=== PATIENT | male | born 1950 | race Caucasian/White ===

== ENCOUNTER 2017-12-09 05:49 | Emergency (ER) | payer MEDICARE, OTHER ==
[~2017-12-09] VITALS: Ht 182.9 cm; Wt 89.0 kg
[2017-12-09 06:28] LABS: BASOPHILS % (AUTO) 0.2 % (0-1); EOSINOPHILS # (AUTO) 0.1 X10'3 (0-0.9); EOSINOPHILS % (AUTO) 1.8 % (0-6); HEMATOCRIT 54.8 % (42.0-52.0); LYMPHOCYTES # (AUTO) 1.3 X10'3 (1.1-4.8); LYMPHOCYTES % (AUTO) 17.8 % (21-51); MEAN CORPUSCULAR HEMOGLOBIN 31.1 PG (27.0-31.0); MEAN CORPUSCULAR HGB CONC 34.1 % (33.0-36.5); MEAN CORPUSCULAR VOLUME 91.2 FL (78-98); MEAN PLATELET VOLUME 8.1 FL (7.4-10.4); MONOCYTES # (AUTO) 0.6 X10'3 (0-0.9); MONOCYTES % (AUTO) 8.4 % (2-12); NEUTROPHILS # (AUTO) 5.4 X10'3 (1.8-7.7); NEUTROPHILS % (AUTO) 71.8 % (42-75); PLATELET COUNT 157 X10'3 (140-440); RED BLOOD COUNT 6.01 X10'6 (4.70-6.10); RED CELL DISTRIBUTION WIDTH 13.9 % (11.5-14.5); WHITE BLOOD COUNT 7.6 X10'3 (4.5-11.0)
[2017-12-09 06:33] LABS: HEMOGLOBIN 18.7 g/dl (14.0-17.9)
[2017-12-09 06:39] LABS: INR 1.1 INR; PARTIAL THROMBOPLASTIN TIME 27 SECONDS (22-32); PROTHROMBIN TIME 11.8 SECONDS (9.0-12.0)
[2017-12-09] MEDS ORDERED: aspirin 81mg tab.chew PO ONE (06:40)
[2017-12-09] MEDS ORDERED: normal saline 1000ML IV soln IVB ONE (06:40)
[2017-12-09] MEDS ORDERED: nitroGLYCERIN 0.4mg/hour patch TD ONE (06:40)
[2017-12-09 06:44] LABS: ALANINE AMINOTRANSFERASE 56 U/L (12-78); ALBUMIN 3.4 G/DL (3.4-5.0); ALBUMIN/GLOBULIN RATIO 0.9 (1.1-1.5); ALKALINE PHOSPHATASE 65 IU/L (46-116); ANION GAP 8 (8-16); ASPARTATE AMINO TRANSFERASE 35 U/L (10-37); BLOOD UREA NITROGEN 19 MG/DL (7-18); BUN/CREATININE RATIO 18.3 (5.4-32.0); CALCIUM 8.8 MG/DL (8.5-10.1); CHLORIDE 105 MMOL/L (99-107); CREATININE 1.04 MG/DL (0.60-1.10); GLUCOSE 113 MG/DL (70-104); POTASSIUM 3.7 MMOL/L (3.5-5.1); SODIUM 139 MMOL/L (135-145); TOTAL CARBON DIOXIDE 26.3 MMOL/L (24-32); TOTAL PROTEIN 7.3 G/DL (6.4-8.2); eGFR 71 ML/MIN
[2017-12-09 07:47] VITALS: BP 168/97
== END 2017-12-09 07:51 | disposition home or self-care (01) ==
LOC: EEVIPCON 05:49 → ER 05:49
DX: I24.9 Acute ischemic heart disease, unspecified (principal); I25.10 Atherosclerotic heart disease of native coronary artery without angina pectoris; E78.00 Pure hypercholesterolemia, unspecified; I10 Essential (primary) hypertension; I25.2 Old myocardial infarction; Z95.1 Presence of aortocoronary bypass graft; Z88.5 Allergy status to narcotic agent; Z88.8 Allergy status to other drugs, medicaments and biological substances
CPT/HCPCS: 36415; 71045; 80053; 84484; 85025; 85610; 85730; 93005; 99285; J7030

== ENCOUNTER 2018-04-12 14:36 | Day surgery (SDC) | payer MEDICARE ==
[2018-04-12] VITALS (10 sets, daily range): BP systolic 93–165; BP diastolic 51–89
[~2018-04-12] VITALS: Ht 182.9 cm; Wt 94.8 kg
[2018-04-12] MEDS ORDERED: diphenhydrAMINE 25mg capsule PO PRN (15:05)
[2018-04-12] MEDS ORDERED: normal saline 1000ml 1,000 ML IV SCH (15:05)
[2018-04-12] MEDS ORDERED: LORazepam 0.5 MG tablet PO PRN (15:05)
[2018-04-12] MEDS ORDERED: MULT-955 PO (15:39)
[2018-04-12] MEDS ORDERED: ASPI-1264 PO (15:39)
[2018-04-12] MEDS ORDERED: LORA1TAB PO (15:39)
[2018-04-12] MEDS ORDERED: NITR0.4T51 SL (15:39)
[2018-04-12] MEDS ORDERED: PER10325T PO (15:39)
[2018-04-12] MEDS ORDERED: CARV-50 PO (15:39)
[2018-04-12] MEDS ORDERED: LISI1TAB9 PO (15:39)
[2018-04-12] MEDS ORDERED: BACL20TA PO (15:39)
[2018-04-12 16:13] LABS: ALBUMIN 3.7 G/DL (3.4-5.0); ANION GAP 8 (8-16); BLOOD UREA NITROGEN 18 MG/DL (7-18); BUN/CREATININE RATIO 16.2 (5.4-32.0); CALCIUM 9.1 MG/DL (8.5-10.1); CHLORIDE 102 MMOL/L (99-107); CREATININE 1.11 MG/DL (0.60-1.10); GLUCOSE 96 MG/DL (70-104); POTASSIUM 3.9 MMOL/L (3.5-5.1); SODIUM 138 MMOL/L (135-145); TOTAL CARBON DIOXIDE 27.7 MMOL/L (24-32); eGFR 66 ML/MIN
[2018-04-12] MEDS ORDERED: iohexol 350MG/ML 100ml bottle IV ONE (16:27)
[2018-04-12] MEDS ORDERED: fentaNYL/PF 50MCG/1 ML 2ML syringe ONE ×2 (16:27→17:11)
[2018-04-12] MEDS ORDERED: midazolam 2 mg/2 ml injection ONE ×2 (16:27→16:58)
[2018-04-12] MEDS ORDERED: LIDOcaine 1% (10mg/ml)w/preservative injection 20ml MDV ONE (16:27)
[2018-04-12 16:46] LABS: BASOPHILS % (AUTO) 0.6 % (0-1); EOSINOPHILS # (AUTO) 0.2 X10'3 (0-0.9); EOSINOPHILS % (AUTO) 2.6 % (0-6); HEMATOCRIT 51.1 % (42.0-52.0); HEMOGLOBIN 17.2 g/dl (14.0-17.9); LYMPHOCYTES # (AUTO) 2.4 X10'3 (1.1-4.8); LYMPHOCYTES % (AUTO) 34.6 % (21-51); MEAN CORPUSCULAR HEMOGLOBIN 29.9 PG (27.0-31.0); MEAN CORPUSCULAR HGB CONC 33.6 % (33.0-36.5); MEAN CORPUSCULAR VOLUME 89.2 FL (78-98); MEAN PLATELET VOLUME 9.1 FL (7.4-10.4); MONOCYTES # (AUTO) 0.6 X10'3 (0-0.9); MONOCYTES % (AUTO) 8.7 % (2-12); NEUTROPHILS # (AUTO) 3.7 X10'3 (1.8-7.7); NEUTROPHILS % (AUTO) 53.5 % (42-75); PLATELET COUNT 167 X10'3 (140-440); RED BLOOD COUNT 5.74 X10'6 (4.70-6.10); RED CELL DISTRIBUTION WIDTH 14.1 % (11.5-14.5); WHITE BLOOD COUNT 6.9 X10'3 (4.5-11.0)
[2018-04-12 16:59] LABS: PROTHROMBIN TIME 10.6 SECONDS (9.0-12.0)
[2018-04-12] MEDS ORDERED: iohexol 350 MG/ML 50ML vial IV ONE ×2 (17:01→17:09)
[2018-04-12] MEDS ORDERED: hydrALAZINE 20mg/ml inj. IV ONE (17:07)
[2018-04-12] MEDS ORDERED: OXAZEpam 15mg capsule PO PRN (17:45)
[2018-04-12] MEDS ORDERED: nitroGLYCERIN 0.4mg SUBLingual tab SL PRN (17:45)
[2018-04-12] MEDS ORDERED: HYDROcodone/acetaminophen 5mg/325mg tablet PO PRN (17:45)
[2018-04-12] MEDS ORDERED: HYDROcodone/acetaminophen 10/325mg tab PO PRN (17:45)
[2018-04-12] MEDS ORDERED: ondansetron/PF 4mg/2ml inj IV PRN (17:45)
[2018-04-12] MEDS ORDERED: proCHLORperazine 10 MG/2 ml inj IV PRN (17:45)
[2018-04-12] MEDS ORDERED: furosemide 40mg/4ml inj IV PRN (18:30)
== END 2018-04-12 19:45 | disposition home or self-care (01) ==
LOC: SSTAY O 14:36
PROVIDERS: ATTEND Internal Medicine Interventional Cardiology
DX: I25.700 Atherosclerosis of coronary artery bypass graft(s), unspecified, with unstable angina pectoris (principal); E78.5 Hyperlipidemia, unspecified; I25.2 Old myocardial infarction; I42.8 Other cardiomyopathies; I11.0 Hypertensive heart disease with heart failure; I50.9 Heart failure, unspecified; Z95.5 Presence of coronary angioplasty implant and graft; F32.9 Major depressive disorder, single episode, unspecified; F41.8 Other specified anxiety disorders; Z86.14 Personal history of Methicillin resistant Staphylococcus aureus infection; Z87.891 Personal history of nicotine dependence; Z87.01 Personal history of pneumonia (recurrent); Z90.49 Acquired absence of other specified parts of digestive tract; Z85.830 Personal history of malignant neoplasm of bone; Z79.891 Long term (current) use of opiate analgesic; Z88.5 Allergy status to narcotic agent; Z86.73 Personal history of transient ischemic attack (TIA), and cerebral infarction without residual deficits; Z86.69 Personal history of other diseases of the nervous system and sense organs; Z86.74 Personal history of sudden cardiac arrest; Z86.79 Personal history of other diseases of the circulatory system; Z79.82 Long term (current) use of aspirin; Z95.1 Presence of aortocoronary bypass graft; Z79.899 Other long term (current) drug therapy; Z88.8 Allergy status to other drugs, medicaments and biological substances; Z98.890 Other specified postprocedural states
CPT/HCPCS: 36415; 80048; 85025; 85610; 93005; 93458; 93567; 99152; 99153; A6257; C1760; J0360; J1644; J1940; J2001; J2250; J3010; J7030; Q0163; Q9967; A4620; C1769

== ENCOUNTER 2019-11-14 08:38 | Emergency (ER) | payer MEDICARE, BC ==
[~2019-11-14] VITALS: Ht 180.3 cm; Wt 101.8 kg
[~2019-11-14 08:38] MED LIST: ASPI-1264 PO; BACL20TA PO; CARV-50 PO; LISI1TAB32 PO; LORA1TAB PO; MULT-955 PO; NITR0.4T51 SL; PER10325T PO
[2019-11-14] MEDS ORDERED: RIVA15TA PO (11:38)
[2019-11-14] MEDS ORDERED: rivaroxaban 15mg tablet PO STA (11:38)
[2019-11-14 12:09] VITALS: BP 155/94
== END 2019-11-14 12:11 | disposition home or self-care (01) ==
LOC: ER 08:39
DX: I82.812 Embolism and thrombosis of superficial veins of left lower extremity (principal); I25.10 Atherosclerotic heart disease of native coronary artery without angina pectoris; E78.00 Pure hypercholesterolemia, unspecified; I10 Essential (primary) hypertension; I25.2 Old myocardial infarction; Z98.61 Coronary angioplasty status; Z95.1 Presence of aortocoronary bypass graft; Z72.89 Other problems related to lifestyle; Z88.5 Allergy status to narcotic agent; Z88.8 Allergy status to other drugs, medicaments and biological substances; Z79.82 Long term (current) use of aspirin; Z79.01 Long term (current) use of anticoagulants; Z79.899 Other long term (current) drug therapy
CPT/HCPCS: 93971; 99285

== ENCOUNTER 2021-10-08 12:02 | Day surgery (SDC) | payer MEDICARE ==
[2021-10-07 12:10] LABS: BASOPHILS # (AUTO) 0.1 X10'3 (0-0.2); BASOPHILS % (AUTO) 0.7 % (0-1); EOSINOPHILS # (AUTO) 0.2 X10'3 (0-0.9); EOSINOPHILS % (AUTO) 1.5 % (0-6); HEMATOCRIT 51.5 % (42.0-52.0); HEMOGLOBIN 16.9 g/dl (14.0-17.9); LYMPHOCYTES # (AUTO) 2.1 X10'3 (1.1-4.8); MEAN CORPUSCULAR HEMOGLOBIN 29.2 PG (27.0-31.0); MEAN CORPUSCULAR HGB CONC 32.7 g/dL (33.0-36.5); MEAN CORPUSCULAR VOLUME 89.1 FL (78-98); MEAN PLATELET VOLUME 8.9 FL (7.4-10.4); MONOCYTES # (AUTO) 0.9 X10'3 (0-0.9); MONOCYTES % (AUTO) 8.3 % (2-12); NEUTROPHILS # (AUTO) 7.6 X10'3 (1.8-7.7); NEUTROPHILS % (AUTO) 70.5 % (42-75); PLATELET COUNT 165 X10'3 (140-440); RED BLOOD COUNT 5.78 X10'6 (4.70-6.10); RED CELL DISTRIBUTION WIDTH 16.2 % (11.5-14.5); WHITE BLOOD COUNT 10.8 X10'3 (4.5-11.0)
[2021-10-07 12:17] LABS: ALBUMIN 3.8 G/DL (3.4-5.0); ANION GAP 5 (8-16); BLOOD UREA NITROGEN 23 MG/DL (7-18); BUN/CREATININE RATIO 17.2 (5.4-32.0); CHLORIDE 103 MMOL/L (99-107); CREATININE 1.34 MG/DL (0.60-1.10); GLUCOSE 106 MG/DL (70-104); POTASSIUM 4.3 MMOL/L (3.5-5.1); SODIUM 140 MMOL/L (135-145); TOTAL CARBON DIOXIDE 31.9 MMOL/L (24-32); eGFR 53 ML/MIN
[2021-10-07 12:21] LABS: APTT 25 SECONDS (22-32)
[~2021-10-08] VITALS: Ht 180.3 cm; Wt 97.9 kg
[2021-10-08] VITALS (7 sets, daily range): BP systolic 120–144; BP diastolic 62–78
[~2021-10-08 12:02] MED LIST changes: -LISI1TAB32 PO; +LISI1TAB49 PO; +RIVA15TA PO
[2021-10-08] MEDS ORDERED: diphenhydrAMINE 25mg capsule PO PRN ×2 (12:25→14:20)
[2021-10-08] MEDS ORDERED: LORazepam 0.5 MG tablet PO PRN ×2 (12:25→14:20)
[2021-10-08] MEDS ORDERED: potassium PO (12:46)
[2021-10-08] MEDS ORDERED: LISI1TAB51 PO (12:47)
[2021-10-08] MEDS ORDERED: CARV25TA56 PO (12:47)
[2021-10-08] MEDS ORDERED: Testosterone (12:52)
[2021-10-08] MEDS ORDERED: Testosterone TOP (12:52)
[2021-10-08] MEDS ORDERED: CINN500C15 PO (12:58)
[2021-10-08] MEDS ORDERED: ZINC (12:58)
[2021-10-08] MEDS ORDERED: MAGN500C4 PO (12:58)
[2021-10-08] MEDS ORDERED: [UNRECOGNIZED DRUG - OTHER] PO (12:58)
[2021-10-08] MEDS ORDERED: Vitamin D PO (12:58)
[2021-10-08] MEDS ORDERED: Vitamin B12 PO (12:58)
[2021-10-08] MEDS ORDERED: VITAMIN C (12:58)
[2021-10-08] MEDS ORDERED: FISH1CAP15 PO (12:58)
[2021-10-08] MEDS ORDERED: nitroGLYCERIN-Tridil 50MG/D5W 250 ML IV ONE (14:05)
[2021-10-08] MEDS ORDERED: midazolam 1 mg/ML 2ml injection ONE ×2 (14:05→15:31)
[2021-10-08] MEDS ORDERED: LIDOcaine 1% 30ml preserv. free vial ONE (14:06)
[2021-10-08] MEDS ORDERED: heparin 1,000unit/ml 10ml vial 10 ML ONE (14:06)
[2021-10-08] MEDS ORDERED: fentaNYL/PF 50MCG/1 ML 2ML syringe ONE (14:06)
[2021-10-08] MEDS ORDERED: verapamil 2.5 mg/ml inj IV ONE (14:07)
[2021-10-08] MEDS ORDERED: normal saline 1,000 ML IV SCH (14:20)
[2021-10-08] MEDS ORDERED: acetaminophen w/codeine (30MG) #3 tablet PO PRN (14:20)
[2021-10-08] MEDS ORDERED: proCHLORperazine 10 MG/2 ml inj ONE (14:32)
[2021-10-08] MEDS ORDERED: HYDROmorphone 1 mg/ml syringe ONE (14:35)
[2021-10-08] MEDS ORDERED: diphenhydrAMINE 50 mg/ml inj ONE (14:36)
[2021-10-08] MEDS ORDERED: IOHEXOL 350 MG/ML INFUS..BTL 125ML IV ONE (14:57)
[2021-10-08] MEDS ORDERED: heparin 25,000 UNIT/250ml bag 250 ML IV ONE (15:31)
[2021-10-08] MEDS ORDERED: iohexol 350 MG/ML 50ML vial IV ONE (15:50)
[2021-10-08] MEDS ORDERED: clopidogrel 300mg tablet ONE (15:58)
[2021-10-08] MEDS ORDERED: HYDROcodone/acetaminophen 5mg/325mg tablet PO PRN (17:00)
[2021-10-08] MEDS ORDERED: HYDROcodone/acetaminophen 10/325mg tab PO PRN (17:00)
[2021-10-08] MEDS ORDERED: normal saline 1,000 ML IV ONE (17:00)
--- NOTE | 2021-10-08 17:45 | NUR ---
Patient's returned from [facility] with new prescriptions for Plavix 75 mg and aspirin 162 mg daily. Educated patient and spouse on dosage and administration schedule.
--- NOTE | 2021-10-08 17:55 | NUR ---
Bedside report given to REINA Marin. All questions answered. Assisted patient into bed and assessed vasc band to left wrist. No bleeding noted. Patient stable at transfer of care.
--- NOTE | 2021-10-08 18:45 | NUR ---
Discussed discharge with NOC RN, Will and appropriate precautions for patient's left radial procedure site. Instructed and demonstrated release of air in vasc band with NOC RN. Discussed all discharge instructions with patient. Patient verbalizes understanding of all discharge instructions and when to seek further medical attention. 4 mL of air had been released from vasc band with no signs of bleeding with no hematoma noted. Patient stable.
--- NOTE | 2021-10-08 19:08 | NUR ---
Recieved patient at change of shift. Assisted patient to bed; patient needs minimal assist. Reminded patient to not place pressure on left wrist. Got patient comfortable in room and gave report to NOC RN.
[2021-10-08] MEDS ORDERED: FLU VACC QS2021-22(6MOS UP)/PF 60 MCG/0.5 ML SYRINGE IM ONE (19:55)
--- NOTE | 2021-10-08 20:59 | NUR ---
Air in vac band removed according to protocol. There were no signs of bleeding. 2x2, tegederm, 2x2 and coban applied. Pt stable does not appear to be in any distress. O2 saturation 98% on room air. secured entrance monitor and IV removed. Pt wheeled to front of hospital with all personal belongings by aide. awaiting pt to bring home.
== END 2021-10-08 20:30 | disposition home or self-care (01) ==
LOC: SSTAY O 12:02 → PCU 3S 18:57 → SSTAY O 20:30
PROVIDERS: ATTEND Internal Medicine Cardiovascular Disease
DX: R94.39 Abnormal result of other cardiovascular function study (principal); I25.810 Atherosclerosis of coronary artery bypass graft(s) without angina pectoris; I10 Essential (primary) hypertension; E78.5 Hyperlipidemia, unspecified; E66.9 Obesity, unspecified; Z68.29 Body mass index [BMI] 29.0-29.9, adult; I42.0 Dilated cardiomyopathy; G89.29 Other chronic pain; Z79.01 Long term (current) use of anticoagulants; Z79.82 Long term (current) use of aspirin; Z79.899 Other long term (current) drug therapy; Z86.718 Personal history of other venous thrombosis and embolism; Z98.890 Other specified postprocedural states; Z87.891 Personal history of nicotine dependence; Z88.8 Allergy status to other drugs, medicaments and biological substances; Z82.49 Family history of ischemic heart disease and other diseases of the circulatory system; Z82.61 Family history of arthritis
CPT/HCPCS: 36415; 76937; 80048; 85025; 85347; 85610; 85730; 92921; 93005; 93459; 99152; 99153; C1725; C1751; C1769; C1874; C1894; C9600; J0780; J1200; J1644; J2250; J3010; J3490; J7030; Q0163; Q9967; 92920; A4620; A5120; A6258; G0378; J1170

== ENCOUNTER 2021-11-18 06:17 | Day surgery (SDC) | payer MEDICARE ==
[2021-11-18] VITALS (12 sets, daily range): BP systolic 130–160; BP diastolic 66–109
[~2021-11-18] VITALS: Ht 180.3 cm; Wt 99.9 kg
[~2021-11-18 06:17] MED LIST changes: -ASPI-1264 PO; +ASPI-611 PO; -BACL20TA PO; -CARV-50 PO; +CARV25TA56 PO; +CLOP75TA34 PO; +GABA600T13 PO; -LISI1TAB49 PO; +LISI1TAB51 PO; +METO10TA3 PO; -MULT-955 PO; -NITR0.4T51 SL; -RIVA15TA PO; +ROSU20TA31 PO; +famotidine 20mg tablet PO ONE; +ringers solution, lacted 1,000 ML IV SCH; +testosterone TOP
[2021-11-18] MEDS ORDERED: diazepam 5mg tablet PO ONE (07:25)
[2021-11-18] MEDS ORDERED: ceFAZolin 2gm in dextrose, iso 100 ML IV ONE (07:35)
[2021-11-18] MEDS ORDERED: ringers solution, lacted 1,000 ML IV SCH ×2 (07:35→10:05)
[2021-11-18 08:02] LABS: BASOPHILS # (AUTO) 0.1 X10'3 (0-0.2); BASOPHILS % (AUTO) 0.9 % (0-1); EOSINOPHILS # (AUTO) 0.4 X10'3 (0-0.9); EOSINOPHILS % (AUTO) 5.8 % (0-6); LYMPHOCYTES # (AUTO) 1.6 X10'3 (1.1-4.8); MEAN CORPUSCULAR HEMOGLOBIN 28.9 PG (27.0-31.0); MEAN CORPUSCULAR HGB CONC 32.7 g/dL (33.0-36.5); MEAN CORPUSCULAR VOLUME 88.4 FL (78-98); MEAN PLATELET VOLUME 8.2 FL (7.4-10.4); MONOCYTES # (AUTO) 0.8 X10'3 (0-0.9); MONOCYTES % (AUTO) 10.5 % (2-12); NEUTROPHILS # (AUTO) 4.8 X10'3 (1.8-7.7); NEUTROPHILS % (AUTO) 61.8 % (42-75); PRE OP HEMATOCRIT 47.1 % (42.0-52.0); PRE OP HEMOGLOBIN 15.4 g/dL (14.0-17.9); PRE OP PLATELET COUNT 165 X10'3 (140-440); RED BLOOD COUNT 5.33 X10'6 (4.70-6.10); RED CELL DISTRIBUTION WIDTH 15.8 % (11.5-14.5)
[2021-11-18] MEDS ORDERED: midazolam 1 mg/ML 2ml injection ONE (08:09)
[2021-11-18] MEDS ORDERED: fentaNYL/PF 50MCG/1 ML 2ML syringe ONE (08:09)
[2021-11-18] MEDS ORDERED: ROPIVAcaine 0.5% (5mg/ml) 30ml vial ONE (08:13)
[2021-11-18] MEDS ORDERED: propofol inj 20 ML IV ONE (08:13)
[2021-11-18] MEDS ORDERED: dexamethasone sod phosphate 4mg/ml inj. ONE ×2 (08:13→10:10)
[2021-11-18 08:20] LABS: ALBUMIN 3.6 G/DL (3.4-5.0); ALBUMIN/GLOBULIN RATIO 1.1 (1.1-1.5); ALKALINE PHOSPHATASE 57 IU/L (46-116); BLOOD UREA NITROGEN 21 MG/DL (7-18); BUN/CREATININE RATIO 17.2 (5.4-32.0); CALCIUM 9.2 MG/DL (8.5-10.1); CHLORIDE 108 MMOL/L (99-107); CREATININE 1.22 MG/DL (0.60-1.10); PRE OP ALT 36 U/L (30-65); PRE OP ANION GAP 7 (8-16); PRE OP AST 25 U/L (10-37); PRE OP BILIRUB, TOTAL 0.6 MG/DL (0.0-1.0); PRE OP GLUCOSE 113 MG/DL (70-104); PRE OP POTASSIUM 3.8 MMOL/L (3.4-5.1); PRE OP SODIUM 144 MMOL/L (135-145); TOTAL CARBON DIOXIDE 29.3 MMOL/L (24-32); TOTAL PROTEIN 6.8 G/DL (6.4-8.2); eGFR 59 ML/MIN
[2021-11-18] MEDS ORDERED: cloNIDine hcl/PF 100mcg/ml inj ONE (08:29)
[2021-11-18] MEDS ORDERED: sevoflurane 250ml liquid IH ONE (08:30)
[2021-11-18] MEDS ORDERED: bacitracin 15gm ointment TP ONE (09:14)
[2021-11-18] MEDS ORDERED: mupirocin 2% ointment 22GM ONE (09:14)
[2021-11-18] MEDS ORDERED: meperidine/PF 25mg/ml syringe IV PRN ×2 (10:05)
[2021-11-18] MEDS ORDERED: ROPIVAcaine 0.2% (10 MG/5 ML) BOLUS INJECTION POPLITEAL PRN (10:05)
[2021-11-18] MEDS ORDERED: ROPIVAcaine 0.2%/PF PUMP/bolus 545 ML POPLITEAL SCH (10:05)
[2021-11-18] MEDS ORDERED: HYDROmorphone/PF 0.2 MG/ML SYRINGE IV PRN ×2 (10:05)
[2021-11-18] MEDS ORDERED: ondansetron/PF 4mg/2ml inj IV PRN (10:05)
[2021-11-18] MEDS ORDERED: ondansetron/PF 4mg/2ml inj ONE (10:10)
[2021-11-18] MEDS ORDERED: neostigmine methylsulfate 1 MG/ML 10ml vial ONE (10:10)
[2021-11-18] MEDS ORDERED: glycopyrrolate 0.2mg/ml inj ONE (10:10)
[2021-11-18] MEDS ORDERED: ePHEDrine 50MG/ML INJ. ONE (10:10)
[2021-11-18] MEDS ORDERED: rocuronium 10mg/ml inj IV ONE (10:10)
[2021-11-18] MEDS ORDERED: albuterol 60 PUFF/8GM Inhaler IH ONE (10:23)
--- NOTE | 2021-11-18 10:31 | NUR ---
Received from OR via ENE, accompanied by Anesthesiologist and report given by DR. RODRIGUES Anesthesiologist. PATIENT WAKING UP, NO S/S OF PAIN, V/S WNL, 20G TO RH, ACEWRAP AND SPLINT DRESSING to RLE C/D/I with ON Q BALL AT 2ML/HR. APPLIED ICE PACK AND ELEVATED RLE. Addendum: 11/18/21 at 1122 by Tung Lopez RN Amended: Links added.
[2021-11-18] MEDS: meperidine/PF 25mg/ml syringe IV PRN ×2 (11:39→11:56)
--- NOTE | 2021-11-18 12:26 | NUR ---
ALL DISCHARGE CRITERIA HAS BEEN MET. VSS, PAIN AT A TOLERABLE LEVEL, ABLE TO SAFELY AMBULATE AND TRANSFER SELF. IV TAKEN OUT WITHOUT ANY COMPLICATIONS. ALL DISCHARGE INSTRUCTIONS (INCLUDING ON Q PUMP) COVERED WITH PATIENT AND ALL QUESTIONS ANSWERED. PATIENT TAKEN OUT VIA WHEELCHAIR TO PERSONAL VEHICLE WHERE FAMILY DROVE PATIENT HOME. Addendum: 11/18/21 at 1244 by Tung Lopez RN Amended: Links added.
== END 2021-11-18 12:26 | disposition home or self-care (01) ==
LOC: PAS 06:17
PROVIDERS: ATTEND Podiatrist Foot & Ankle Surgery
DX: S86.011A Strain of right Achilles tendon, initial encounter (principal); I10 Essential (primary) hypertension; I25.2 Old myocardial infarction; F41.9 Anxiety disorder, unspecified; I25.10 Atherosclerotic heart disease of native coronary artery without angina pectoris; X58.XXXA Exposure to other specified factors, initial encounter; Y93.89 Activity, other specified; Y92.89 Other specified places as the place of occurrence of the external cause; Y99.8 Other external cause status; M19.071 Primary osteoarthritis, right ankle and foot; M92.61 Juvenile osteochondrosis of tarsus, right ankle; Z79.01 Long term (current) use of anticoagulants; Z79.899 Other long term (current) drug therapy; G89.18 Other acute postprocedural pain; Z98.890 Other specified postprocedural states; Z88.6 Allergy status to analgesic agent; Z88.8 Allergy status to other drugs, medicaments and biological substances
CPT/HCPCS: 27650; 36415; 64450; 73650; 76942; 80053; 82948; 85025; 85610; A6222; C1713; J0735; J1100; J2175; J2250; J2405; J2704; J2710; J2795; J3010; J3490; J7030; J7120; Z7506; Z7508; Z7512; 76000; A4215; A4615; A4618; A6253; A6449; A7000

== ENCOUNTER 2023-06-22 09:45 | Day surgery (SDC) | payer MEDICARE ==
[2023-06-21 11:04] LABS: BASOPHILS # (AUTO) 0.1 X10'3 (0-0.2); BASOPHILS % (AUTO) 1.1 % (0-1); EOSINOPHILS # (AUTO) 0.5 X10'3 (0-0.9); EOSINOPHILS % (AUTO) 8.6 % (0-6); HEMATOCRIT 54.1 % (42.0-52.0); HEMOGLOBIN 17.6 g/dl (14.0-17.9); LYMPHOCYTES # (AUTO) 1.9 X10'3 (1.1-4.8); LYMPHOCYTES % (AUTO) 31.8 % (21-51); MEAN CORPUSCULAR HGB CONC 32.5 g/dL (33.0-36.5); MEAN CORPUSCULAR VOLUME 89.3 FL (78-98); MONOCYTES # (AUTO) 0.5 X10'3 (0-0.9); MONOCYTES % (AUTO) 9.2 % (2-12); NEUTROPHILS # (AUTO) 2.9 X10'3 (1.8-7.7); NEUTROPHILS % (AUTO) 49.3 % (42-75); PLATELET COUNT 217 X10'3 (140-440); RED BLOOD COUNT 6.06 X10'6 (4.70-6.10); RED CELL DISTRIBUTION WIDTH 16.1 % (11.5-14.5); WHITE BLOOD COUNT 5.9 X10'3 (4.5-11.0)
[2023-06-21 11:19] LABS: APTT 28 SECONDS (22-32); INR 1.1 INR; PROTHROMBIN TIME 11.9 SECONDS (9.0-12.0)
[2023-06-21 12:28] LABS: ALBUMIN 3.7 G/DL (3.4-5.0); ANION GAP 8 (8-16); BLOOD UREA NITROGEN 21 MG/DL (7-18); BUN/CREATININE RATIO 17.1 (10.0-20.0); CALCIUM 9.6 MG/DL (8.5-10.1); CHLORIDE 105 MMOL/L (99-107); CREATININE 1.23 MG/DL (0.60-1.10); GLUCOSE 103 MG/DL (70-104); POTASSIUM 5.5 MMOL/L (3.5-5.1); SODIUM 141 MMOL/L (135-145); TOTAL CARBON DIOXIDE 28.2 MMOL/L (24-32); eGFR 58 ML/MIN
[2023-06-22] VITALS (10 sets, daily range): BP systolic 98–143; BP diastolic 50–74; PULSE 66–83; RESP 12–17; TEMP 98.4; O2SAT 92–96
[~2023-06-22] VITALS: Ht 182.9 cm; Wt 89.4 kg
[~2023-06-22 09:45] MED LIST changes: -LORA1TAB PO; -ROSU20TA31 PO; +ROSU20TA73 PO; -famotidine 20mg tablet PO ONE; -ringers solution, lacted 1,000 ML IV SCH
[2023-06-22] MEDS ORDERED: CITA20TA16 PO (10:23)
[2023-06-22] MEDS ORDERED: SACU1TAB PO (10:23)
[2023-06-22] MEDS ORDERED: Potassium PO (10:23)
[2023-06-22] MEDS ORDERED: FISH1CAP15 PO (10:23)
[2023-06-22] MEDS ORDERED: CARV3.122 PO (10:23)
[2023-06-22] MEDS ORDERED: SPIR25TA5 PO (10:23)
[2023-06-22] MEDS ORDERED: FLO0.4C PO (10:23)
[2023-06-22] MEDS ORDERED: midazolam 1 mg/ML 2ml injection ONE ×2 (10:31→11:57)
[2023-06-22] MEDS ORDERED: fentaNYL/PF 50MCG/1 ML 2ML syringe ONE (10:31)
[2023-06-22] MEDS ORDERED: verapamil 2.5 mg/ml inj IV ONE (10:31)
[2023-06-22] MEDS ORDERED: iohexol 350MG/ML 100ml bottle IV ONE (10:31)
[2023-06-22] MEDS ORDERED: heparin 1,000unit/ml 10ml vial 10 ML ONE (10:31)
[2023-06-22] MEDS ORDERED: iohexol 350 MG/ML 50ML vial IV ONE ×2 (10:31→12:01)
[2023-06-22] MEDS ORDERED: LIDOcaine 1% (10mg/ml) 2ml vial ONE ×2 (10:31→11:39)
[2023-06-22] MEDS ORDERED: nitroGLYCERIN 500mcg/5mL D5W 5 ML IV ONE (10:49)
[2023-06-22] MEDS: LORazepam 0.5 MG tablet PO PRN (10:59)
[2023-06-22] MEDS: diphenhydrAMINE 25mg capsule PO PRN (11:00)
[2023-06-22] MEDS: acetylcysteine 200 MG/ml 4ml vial PO PRN (11:01)
[2023-06-22] MEDS: sodium bicarbonate 1meq/ml inj 150 ML in dextrose 5%-water 1,000 ML IV SCH (11:01)
[2023-06-22] MEDS: normal saline 1,000 ML IV SCH (11:04)
[2023-06-22] MEDS ORDERED: diphenhydrAMINE 50 mg/ml inj ONE (11:43)
[2023-06-22 12:14] LABS: ISTAT HGB ART 17.3 g/dl (14.0-17.9); ISTAT Hct ART 51 %PCV (42-52); ISTAT O2 SATURATION ARTERIAL 94 % (95-98); ISTAT SOURCE ART
[2023-06-22] MEDS: furosemide 20 MG/2 ML vial IV ONE (13:12)
[2023-06-22] MEDS: sodium polystyrene sulfonate 15gm/60ml oral suspension PO ONE (14:59)
[2023-06-26 06:39] LABS: ISTAT Hct MIX 50 %PCV (42-52); ISTAT O2 SATURATION MIX VENOUS 72 % (60-80); ISTAT SOURCE VEN
== END 2023-06-22 16:45 | disposition home or self-care (01) ==
LOC: SSTAY O 09:45
PROVIDERS: ATTEND Internal Medicine Cardiovascular Disease
DX: I25.119 Atherosclerotic heart disease of native coronary artery with unspecified angina pectoris (principal); I42.0 Dilated cardiomyopathy; I44.7 Left bundle-branch block, unspecified; I11.0 Hypertensive heart disease with heart failure; I50.9 Heart failure, unspecified; E78.5 Hyperlipidemia, unspecified; E66.9 Obesity, unspecified; I08.1 Rheumatic disorders of both mitral and tricuspid valves; Z86.718 Personal history of other venous thrombosis and embolism; Z79.82 Long term (current) use of aspirin; Z79.899 Other long term (current) drug therapy; Z95.1 Presence of aortocoronary bypass graft; Z95.5 Presence of coronary angioplasty implant and graft; Z98.890 Other specified postprocedural states; Z68.27 Body mass index [BMI] 27.0-27.9, adult; Z88.8 Allergy status to other drugs, medicaments and biological substances; Z82.49 Family history of ischemic heart disease and other diseases of the circulatory system; Z82.61 Family history of arthritis
CPT/HCPCS: 36415; 76937; 80048; 82803; 85014; 85025; 85610; 85730; 93005; 93461; 99152; 99153; A6258; J1200; J1644; J2250; J3010; J3490; J7030; J7070; Q0163; Q9967; A6402; C1725; C1751; C1894

== ENCOUNTER 2023-07-26 12:02 | Inpatient (IN) | payer MEDICARE ==
[2023-07-26] VITALS (8 sets, daily range): BP systolic 102–144; BP diastolic 52–83; PULSE 65–86; RESP 10–18; TEMP 97.3; O2SAT 95–96
[~2023-07-26] VITALS: Ht 182.9 cm; Wt 91.9 kg
[~2023-07-26 12:02] MED LIST changes: -ASPI-611 PO; -CARV25TA56 PO; +CARV3.122 PO; +CITA20TA16 PO; +FISH1CAP15 PO; +FLO0.4C PO; -LISI1TAB51 PO; -METO10TA3 PO; -PER10325T PO; +Potassium PO; +SACU1TAB PO; +SPIR25TA5 PO; -testosterone TOP
[2023-07-26 12:54] LABS: BASOPHILS % (AUTO) 0.8 % (0-1); EOSINOPHILS # (AUTO) 0.4 X10'3 (0-0.9); EOSINOPHILS % (AUTO) 6.5 % (0-6); HEMATOCRIT 44.7 % (42.0-52.0); HEMOGLOBIN 14.5 g/dl (14.0-17.9); LYMPHOCYTES # (AUTO) 1.7 X10'3 (1.1-4.8); LYMPHOCYTES % (AUTO) 28.2 % (21-51); MEAN CORPUSCULAR HEMOGLOBIN 29.3 PG (27.0-31.0); MEAN CORPUSCULAR HGB CONC 32.5 g/dL (33.0-36.5); MEAN CORPUSCULAR VOLUME 90.3 FL (78-98); MEAN PLATELET VOLUME 8.5 FL (7.4-10.4); MONOCYTES # (AUTO) 0.5 X10'3 (0-0.9); NEUTROPHILS # (AUTO) 3.5 X10'3 (1.8-7.7); NEUTROPHILS % (AUTO) 56.5 % (42-75); PLATELET COUNT 140 X10'3 (140-440); RED BLOOD COUNT 4.95 X10'6 (4.70-6.10); RED CELL DISTRIBUTION WIDTH 15.8 % (11.5-14.5); WHITE BLOOD COUNT 6.2 X10'3 (4.5-11.0)
[2023-07-26 13:08] LABS: ALANINE AMINOTRANSFERASE 37 U/L (12-78); ALBUMIN 3.8 G/DL (3.4-5.0); ALBUMIN/GLOBULIN RATIO 1.1 (1.1-1.5); ALKALINE PHOSPHATASE 126 IU/L (46-116); ANION GAP 7 (8-16); ASPARTATE AMINO TRANSFERASE 20 U/L (10-37); BILIRUBIN,TOTAL 0.4 MG/DL (0.1-1.0); BLOOD UREA NITROGEN 19 MG/DL (7-18); BUN/CREATININE RATIO 15.6 (10.0-20.0); CALCIUM 8.3 MG/DL (8.5-10.1); CHLORIDE 107 MMOL/L (99-107); CREATININE 1.22 MG/DL (0.60-1.10); GLUCOSE 118 MG/DL (70-104); POTASSIUM 4.1 MMOL/L (3.5-5.1); SODIUM 141 MMOL/L (135-145); TOTAL CARBON DIOXIDE 26.6 MMOL/L (24-32); TOTAL PROTEIN 7.2 G/DL (6.4-8.2); eCRCL 61 ML/MIN; eGFR 59 ML/MIN
[2023-07-26 13:25] LABS: PRO BRAIN NATRIURETIC PEPTIDE 4321 PG/ML (0-125)
[2023-07-26 13:30] LABS: APTT 26 SECONDS (22-32); D-DIMER 0.48 MG/L FEU (0-0.50); INR 1.1 INR; PROTHROMBIN TIME 11.3 SECONDS (9.0-12.0)
[2023-07-26 13:48] LABS: FREE T4 (FREE THYROXINE) 1.03 NG/DL (0.73-1.40); MAGNESIUM 2.1 MG/DL (1.5-2.4); THYROID STIMULATING HORMONE 1.56 ulU/ml (0.34-4.50)
[2023-07-26] MEDS ORDERED: furosemide 10 MG/1 ML 10ml inj IV ONE (14:50)
[2023-07-26] MEDS ORDERED: furosemide 20 MG/2 ML vial IV ONE (15:00)
[2023-07-26] MEDS: bumetanide 0.25mg/ml 4ml vial IV STA (15:21)
[2023-07-26 15:50] LABS: BILIRUBIN,URINE NEGATIVE (Neg); CLARITY,URINE CLEAR (Clear); COLOR,URINE YELLOW (Yellow); GLUCOSE, URINE NEGATIVE (Neg); KETONES,URINE NEGATIVE (Neg); LEUKOCYTE ESTERASE ,URINE NEGATIVE (Neg); NITRITES, URINE NEGATIVE (Neg); OCCULT BLOOD,URINE NEGATIVE (Neg); PH,URINE 5.5 (4.8-8.0); PROTEIN,URINE NEGATIVE (Neg); UROBILINOGEN,URINE 0.2 E.U/dL (0.2-1.0)
[2023-07-26 15:57] LABS: UA COLLECTION TYPE CLN CATCH MIDSTREAM
[2023-07-26] MEDS ORDERED: acetaminophen 325mg tablet PO PRN ×2 (16:00)
[2023-07-26] MEDS ORDERED: magnesium 2GM in 50ml NS 50 ML IV PRN (16:00)
[2023-07-26] MEDS ORDERED: potassium Cl 20 mEq SR tablet PO PRN ×2 (16:00)
[2023-07-26] MEDS ORDERED: mag hydrox/Alum hydrox/simeth 30ml oral suspension PO PRN (16:00)
[2023-07-26] MEDS ORDERED: magnesium Cl slow-release 64mg tablet PO PRN (16:00)
[2023-07-26] MEDS ORDERED: potassium Cl 40MEQ/1/2NS 520ml 520 ML IV PRN (16:00)
[2023-07-26] MEDS ORDERED: magnesium hydroxide 30ml (MOM) UD suspension PO PRN (16:00)
[2023-07-26] MEDS ORDERED: magnesium 4gm in 100ml NS 100 ML IV PRN (16:00)
[2023-07-26] MEDS: fentaNYL/PF 50MCG/1 ML 2ML syringe IV ONE (16:32)
[2023-07-26] MEDS: DOBUTamine-DoBUTrex 500mg/D5W 250 ML IV SCH (17:48)
[2023-07-26] MEDS: K and/or MAG REPLACEMENT MC SCH (20:00)
[2023-07-26] MEDS ORDERED: furosemide 20 MG/2 ML vial IV SCH (20:00)
[2023-07-26] MEDS: HYDROcodone/acetaminophen 5mg/325mg tablet PO PRN (20:41)
[2023-07-26] MEDS: potassium Cl 20 mEq SR tablet PO STA (20:43)
[2023-07-26] MEDS: tamsulosin 0.4mg capsule PO SCH (20:44)
[2023-07-26] MEDS: furosemide 40mg/4ml inj IV SCH (20:45)
[2023-07-26] MEDS: docusate sod 100mg capsule PO SCH (20:45)
[2023-07-26] MEDS: carvedilol 6.25mg tablet PO SCH (20:46)
[2023-07-26] MEDS: magnesium 2GM in 50ml NS 50 ML IV ONE (21:03)
[2023-07-26] MEDS: LIDOcaine 5% patch TP ONE (22:45)
[2023-07-27] MEDS: oxyCODONE/APAP 10/325mg tablet PO PRN (00:04)
[2023-07-27 00:30] VITALS: BP 107/60; PULSE 67; RESP 17
[2023-07-27 01:30] VITALS: BP 111/69; PULSE 66; RESP 15
[2023-07-27 02:00] VITALS: BP 89/62; PULSE 67; RESP 15; TEMP 97.3; O2SAT 97
[2023-07-27] MEDS: ondansetron/PF 4mg/2ml inj IV PRN (03:19)
[2023-07-27 03:30] VITALS: BP 123/78; PULSE 65; RESP 13
[2023-07-27 04:01] LABS: BASOPHILS % (AUTO) 0.6 % (0-1); EOSINOPHILS # (AUTO) 0.4 X10'3 (0-0.9); EOSINOPHILS % (AUTO) 4.8 % (0-6); HEMOGLOBIN 14.7 g/dl (14.0-17.9); LYMPHOCYTES # (AUTO) 1.8 X10'3 (1.1-4.8); LYMPHOCYTES % (AUTO) 23.7 % (21-51); MEAN CORPUSCULAR HEMOGLOBIN 28.6 PG (27.0-31.0); MEAN CORPUSCULAR HGB CONC 32.5 g/dL (33.0-36.5); MEAN CORPUSCULAR VOLUME 87.9 FL (78-98); MEAN PLATELET VOLUME 8.6 FL (7.4-10.4); MONOCYTES # (AUTO) 0.6 X10'3 (0-0.9); MONOCYTES % (AUTO) 8.4 % (2-12); NEUTROPHILS # (AUTO) 4.7 X10'3 (1.8-7.7); NEUTROPHILS % (AUTO) 62.5 % (42-75); PLATELET COUNT 148 X10'3 (140-440); RED BLOOD COUNT 5.13 X10'6 (4.70-6.10); RED CELL DISTRIBUTION WIDTH 15.6 % (11.5-14.5); WHITE BLOOD COUNT 7.5 X10'3 (4.5-11.0)
[2023-07-27 05:00] LABS: ALBUMIN 4.1 G/DL (3.4-5.0); ANION GAP 11 (8-16); BLOOD UREA NITROGEN 18 MG/DL (7-18); CALCIUM 9.1 MG/DL (8.5-10.1); CHLORIDE 104 MMOL/L (99-107); CHOL/HDL RATIO 2.2 (0.00-4.99); CHOLESTEROL 122 MG/DL (0-200); CREATININE 1.29 MG/DL (0.60-1.10); GLUCOSE 101 MG/DL (70-104); HDL CHOLESTEROL 56 MG/DL (35-60); LDL CHOLESTEROL 56 MG/DL (50-100); POTASSIUM 4.1 MMOL/L (3.5-5.1); SODIUM 142 MMOL/L (135-145); TOTAL CARBON DIOXIDE 27.5 MMOL/L (24-32); TRIGLYCERIDES 79 MG/DL (20-135); eCRCL 58 ML/MIN; eGFR 55 ML/MIN
[2023-07-27 07:00] VITALS: BP 102/62; PULSE 60; RESP 14; TEMP 97.7; O2SAT 95
[2023-07-27] MEDS ORDERED: LIDOcaine 5% patch TP SCH (08:00)
[2023-07-27] MEDS ORDERED: atorvastatin 20mg tablet PO SCH (08:00)
[2023-07-27] MEDS: aspirin 81mg tab.chew PO SCH (08:30)
[2023-07-27] MEDS ORDERED: AMIO200T67 PO (11:17)
[2023-07-27] MEDS ORDERED: CARV3.122 PO (11:17)
[2023-07-27] MEDS ORDERED: ASPI81TA53 PO (11:17)
[2023-07-27] MEDS ORDERED: LISI2.5T14 PO (11:17)
[2023-07-27] MEDS ORDERED: FURO-150 PO (11:17)
[2023-07-27] MEDS ORDERED: gabapentin 300mg capsule PO SCH (13:00)
[2023-07-28] MEDS ORDERED: tamsulosin 0.4mg capsule PO SCH (08:00)
[2023-07-28] MEDS ORDERED: citalopram 20mg tablet PO SCH (08:00)
[2023-07-28] MEDS ORDERED: OMEGA-3/DHA/EPA/FISH OIL 1 EACH CAPSULE.DR PO SCH (08:00)
[2023-07-28] MEDS ORDERED: clopidogrel 75mg tablet PO SCH (08:00)
[2023-07-28] MEDS ORDERED: spironolactone 25 MG tablet PO SCH (08:00)
[2023-07-28] MEDS ORDERED: atorvastatin 20mg tablet PO SCH (08:00)
== END 2023-07-27 12:00 | disposition home health service (06) | DRG 291 ==
LOC: ER 12:03 → ED HOLD 16:02 → PCU 3S 19:40
PROVIDERS: ADMIT Internal Medicine; ATTEND Internal Medicine
DX: I11.0 Hypertensive heart disease with heart failure (principal); I50.21 Acute systolic (congestive) heart failure; E78.00 Pure hypercholesterolemia, unspecified; N40.0 Benign prostatic hyperplasia without lower urinary tract symptoms; Z20.822 Contact with and (suspected) exposure to COVID-19; I25.10 Atherosclerotic heart disease of native coronary artery without angina pectoris; Z95.1 Presence of aortocoronary bypass graft; Z88.5 Allergy status to narcotic agent; Z79.899 Other long term (current) drug therapy; I25.2 Old myocardial infarction; Z95.5 Presence of coronary angioplasty implant and graft; Z87.891 Personal history of nicotine dependence
CPT/HCPCS: 36415; 71045; 80048; 80053; 80061; 81003; 83605; 83735; 83880; 84145; 84439; 84443; 84484; 85025; 85379; 85610; 85730; 87040; 87081; 87502; 87503; 87811; 93005; 93306; 93880; 99285; A6258; G0378; J1250; J1940; J2405; J3010; J3475; J7040

== ENCOUNTER 2023-08-07 11:14 | Emergency (ER) | payer MEDICARE ==
[~2023-08-07] VITALS: Ht 182.9 cm; Wt 89.9 kg
[~2023-08-07 11:14] MED LIST changes: +AMIO200T67 PO; +ASPI81TA53 PO; +FURO-150 PO; +LISI2.5T14 PO; -SACU1TAB PO
[2023-08-07 11:33] LABS: BASOPHILS # (AUTO) 0.1 X10'3 (0-0.2); BASOPHILS % (AUTO) 0.8 % (0-1); EOSINOPHILS # (AUTO) 0.4 X10'3 (0-0.9); EOSINOPHILS % (AUTO) 5.8 % (0-6); HEMATOCRIT 49.9 % (42.0-52.0); HEMOGLOBIN 16.5 g/dl (14.0-17.9); LYMPHOCYTES # (AUTO) 2.5 X10'3 (1.1-4.8); LYMPHOCYTES % (AUTO) 32.7 % (21-51); MEAN CORPUSCULAR VOLUME 87.8 FL (78-98); MEAN PLATELET VOLUME 8.3 FL (7.4-10.4); MONOCYTES # (AUTO) 0.7 X10'3 (0-0.9); MONOCYTES % (AUTO) 9.5 % (2-12); NEUTROPHILS # (AUTO) 3.8 X10'3 (1.8-7.7); NEUTROPHILS % (AUTO) 51.2 % (42-75); PLATELET COUNT 159 X10'3 (140-440); RED BLOOD COUNT 5.68 X10'6 (4.70-6.10); RED CELL DISTRIBUTION WIDTH 15.8 % (11.5-14.5); WHITE BLOOD COUNT 7.5 X10'3 (4.5-11.0)
[2023-08-07 12:01] LABS: ALBUMIN 4.4 G/DL (3.4-5.0); ANION GAP 6 (8-16); BLOOD UREA NITROGEN 19 MG/DL (7-18); BUN/CREATININE RATIO 15.3 (10.0-20.0); CALCIUM 9.2 MG/DL (8.5-10.1); CHLORIDE 100 MMOL/L (99-107); CREATININE 1.24 MG/DL (0.60-1.10); GLUCOSE 107 MG/DL (70-104); POTASSIUM 4.4 MMOL/L (3.5-5.1); PRO BRAIN NATRIURETIC PEPTIDE 3943 PG/ML (0-125); SODIUM 139 MMOL/L (135-145); TOTAL CARBON DIOXIDE 33.4 MMOL/L (24-32); eCRCL 60 ML/MIN; eGFR 57 ML/MIN
[2023-08-07 12:07] VITALS: TEMP 98.8
[2023-08-07] MEDS ORDERED: iohexol 350MG/ML 100ml bottle IV ONE (12:15)
[2023-08-07] MEDS: morphine 4 MG/ML inj SYRINge IV ONE (12:40)
[2023-08-07] MEDS: ondansetron/PF 4mg/2ml inj IV ONE (12:41)
[2023-08-07 14:30] VITALS: BP 119/75; PULSE 62; RESP 14; O2SAT 93
== END 2023-08-07 18:32 | disposition home or self-care (01) ==
LOC: ER 11:14
DX: R07.9 Chest pain, unspecified (principal); R42 Dizziness and giddiness; R06.02 Shortness of breath
CPT/HCPCS: 36415; 71045; 71275; 74177; 80048; 83880; 84484; 85025; 93005; 96374; 96375; 99285; J2270; J2405; J3490; Q9967

== ENCOUNTER 2025-01-19 11:10 | Emergency (ER) | payer BC, MEDICARE ==
[~2025-01-19] VITALS: Ht 182.9 cm; Wt 92.0 kg
[~2025-01-19 11:10] MED LIST changes: -AMIO200T67 PO; +AMIO200T73 PO; -FLO0.4C PO; +GABA-1405 PO; -GABA600T13 PO; -ROSU20TA73 PO; +ROSU20TA98 PO; +TAMS-55 PO
--- NOTE | 2025-01-19 12:24 | Physician Documentation ---
History of Present Illness ~ General Chief Complaint: General Stated Complaint: SOB Time Seen by MD: 11:58 OK to notify your PCP?: Yes Primary Medical Doctor: Fermín Tobar Source: patient, RN/MD, EMS, RN notes reviewed, EMS notes reviewed, old records Mode of Arrival: EMS Exam Limitations: no limitations History of Present Illness Initial Comments Bed 08 This patient is a 74 y/o male with CHF and history of NC who presents to ED with chief complaint of shortness of breath and decreased urine output. Patient states that he believes he has fluid around his heart, as he was recenlty seen by his car examiner, Dr. Jo, two days ago at which time he was diagnosed with pericardial effusion. At that time, Dr. Jo doubled his Spironolactone. He states that he now feels similar in that he cannot breathe while laying flat, which has caused him difficulty sleeping over the past two nights. Patient did try taking four of his prescribed 20mg Lasix at 6AM this morning with no improvement, stating he only urinated today and was not a lot. He did not urinate all night last night. Patient states his most recent EF was at 15%. He reports he is scheduled for an echocardiogram tomorrow. Medication Reconciliation Allergies: Coded Allergies: No Known Allergies (Unverified , 08/07/23) Scheduled Amiodarone HCl (Amiodarone HCl), 1 TAB PO DAILY Aspirin (Children's Aspirin), 81 MG PO DAILY@0830 Carvedilol (Carvedilol), 2 TAB PO BID Citalopram Hydrobromide (Citalopram HBr), 1 TAB PO DAILY, (Reported) Clopidogrel Bisulfate (Clopidogrel), 1 TAB PO DAILY, (Reported) Fish Oil/Dha/Epa (Fish Oil 1,200 Mg Fish Oil), 1 CAP PO DAILY, (Reported) Furosemide (Lasix), 40 MG PO BID Gabapentin (Gabapentin), 1 TAB PO TID, (Reported) Lisinopril (Lisinopril), 1 TAB PO DAILY Rosuvastatin Calcium (Rosuvastatin Calcium), 1 TAB PO DAILY, (Reported) Spironolactone (Spironolactone), 1 TAB PO DAILY, (Reported) Tamsulosin Hcl* (Flomax*), 1 CAP PO DAILY, (Reported) [Potassium], 1 TAB PO DAILY, (Reported) Past Medical History Past Medical History: Coronary Artery Disease, Congestive Heart Failure, High Cholesterol, Hypertension, Myocardial Infarction, *CANCER* Past Surgical History: angioplasty, coronary bypass surgery, pacemaker Smoking Status: Former smoker Alcohol Use: Occasionally Drug Use: none Lives with: Spouse Lives In: Home Review of Systems All Other Systems at this time: Reviewed and Negative ROS As stated in the HPI above, otherwise all other systems have been reviewed and negative. Respiratory: Reports: orthopnea Physical Exam Physical Exam Vital Signs: RN Vital Signs have been reviewed: Yes, Temperature: 98.1, Source: Oral, Heart Rate: 99, Respiratory Rate: 16, BP: 143/73, Pulse Oximetry: 97, Weight: 92.000 Oxygen Flow Rate: 0 Physical Exam General: The patient is well developed, well nourished, nontoxic appearing and is in no acute distress. Skin: [place], warm and dry with no rashes. HEENT: Head was normocephalic and atraumatic. Eyes - pupils equal, round, reactive to light and accommodation. Extraocular movements were intact. Conjunctivae were nonicteric. The mouth and oropharynx were clear with moist mucous membranes. There were no pharyngeal exudates or erythema. Neck: Supple and nontender. There was no jugular venous distention, lymphadenopathy, thyromegaly or masses. Chest: Crackles on auscultation, but otherwise no wheezing or rhonchi. No accessory muscle use. No dullness to percussion. Heart: Rate regular and rhythmic. S1, S2. No murmurs. Palpation of the chest wall was normal. No rubs or thrills. Abdomen: Soft, nontender and nondistended. Positive bowel sounds. No guarding or rebound. No hepatosplenomegaly or palpable masses. Extremities: No cyanosis, clubbing or edema. The patient moves all extremities. Pulses were equal and symmetric. Neurologic: Motor and sensation grossly intact. A & O x4. Psychologic: The patient was oriented to person, place and time. Progress Results/Orders Reviewed/noted all lab results: Yes Results/Orders Orders - LUIS FERNANDO MAGANA MD Stat Ekg (01/19/25 ) Chest,Single View (01/19/25 11:47) Monitor (01/19/25 11:38) Saline Lock (01/19/25 11:38) Oxygen (01/19/25 11:38) Electrocardiogram (01/19/25 11:38) Hs Troponin I W Calculations (01/19/25 14:38) Echocardiogram (01/19/25 12:24) Completed Orders - LUIS FERNANDO MAGANA MD Chest,Single View (01/19/25 11:47) Cbc/Diff (01/19/25 11:38) BMP (01/19/25 11:38) PBNP (01/19/25 11:38) Hs Troponin I W Calculations (01/19/25 11:38) Hs Troponin I W Calculations (01/19/25 13:38) Ethanol (01/19/25 11:38) Liver Panel (01/19/25 11:38) MG (01/19/25 11:38) Echocardiogram (01/19/25 12:24) Furosemide Inj (Lasix Inj) (01/19/25 12:30) Lorazepam Tablet (Ativan Tablet) (01/19/25 13:40) Medications Received in ER Medications (Trade) Dose Ordered Sig/Andre Route PRN Reason Start Time Stop Time Status Last Admin Dose Admin (Lasix inj) 40 mg ONCE ONCE IV 01/19/25 12:30 01/19/25 12:31 DC 01/19/25 13:00 40 MG (Ativan tablet) 1 mg ONCE ONCE PO 01/19/25 13:40 01/19/25 13:41 DC 01/19/25 13:48 1 MG Vital Signs 01/19/25 01/19/25 01/19/25 01/19/25 11:22 11:55 12:07 13:15 Temp 98.1 Pulse 101 99 100 Resp 16 16 16 B/P (MAP) 151/78 143/73 (96) 139/60 (86) Pulse Ox 100 97 100 O2 Flow Rate 0 0 0 01/19/25 01/19/25 13:48 15:11 Temp 98.1 Pulse 101 Resp 20 18 B/P (MAP) 110/71 Pulse Ox 98 Laboratory Tests Test 01/19/25 12:04 01/19/25 14:10 White Blood Count 8.8 Red Blood Count 5.03 Hemoglobin 14.9 Hematocrit 43.9 Mean Corpuscular Volume 87.3 Mean Corpuscular Hemoglobin 29.7 Mean Corpuscular Hemoglobin Concent 34.0 Red Cell Distribution Width 14.3 Platelet Count 285 Mean Platelet Volume 9.0 Neutrophils (%) (Auto) 65.5 Lymphocytes (%) (Auto) 17.8 L Monocytes (%) (Auto) 9.8 Eosinophils (%) (Auto) 6.1 H Basophils (%) (Auto) 0.8 Neutrophils # (Auto) 5.8 Lymphocytes # (Auto) 1.6 Monocytes # (Auto) 0.9 Eosinophils # (Auto) 0.5 Basophils # (Auto) 0.1 CBC Comment Sodium Level 134 L Potassium Level 4.4 Chloride Level 96 L Carbon Dioxide Level 27.4 Anion Gap 11 Blood Urea Nitrogen 32 H Creatinine 1.55 H Estimated GFR/1.73 m2 44 BUN/Creatinine Ratio 20.6 H Glucose Level 130 H Calcium Level 9.7 Magnesium Level 2.4 Total Bilirubin 0.5 Direct Bilirubin 0.2 Aspartate Amino Transf (AST/SGOT) 22 Alanine Aminotransferase (ALT/SGPT) 42 Alkaline Phosphatase 117 H Troponin I High Sensitivity 18 20 Pro-B-Type Natriuretic Peptide 5376 H Total Protein 9.5 H Albumin 4.6 Globulin 4.9 H Albumin/Globulin Ratio 0.9 L Chemistry Comments Ethyl Alcohol Level < 10 Troponin I High Sens Percent Delta 11 Troponin I Hi Sens Absolute Change 2 Re-Evaluation Re-Evaluation : Re-Evaluation: Improved Progress Patient was seen and examined. Patient is given reassurance patient's laboratory work was obtained CBC shows no anemia or leukocytosis to rule out infectious etiologies or anemia. Patient's chemistry shows a BNP of 5376 which is higher than baseline as well as a creatinine of 1.55 and a BUN of 32 both above baseline. LFTs within normal limits magnesium 2.4 troponin x2 negative. Tox screen negative for alcohol. Echocardiogram did not show any pericardial effusion. Clinically there were crackles at the lung base. Patient received Lasix in route and another dose of Lasix here in the ER. Patient is a bit anxious also received some Ativan. Patient diurese some fluids. Patient is feeling better. Patient denied PND or orthopnea. Patient states he does not sleep flat but he actually sleeps on his side flat. Echocardiogram was negative for pericardial effusion. EF is slightly improved from 20% to 25% left ventricular ejection fraction. Patient will follow up with his car examiner tomorrow as scheduled. Discussed the case with the family at bedside. Continuous night shift interpretation shows normal sinus rhythm heart rate 90s, no ectopy, normal, my interpretation. Pulse oximetry monitor interpretation shows normal oxygenation 99% room air, normal, my interpretation. EKG/XRAY/CT/US/VASC/MRI EKG : Intepreting Monitor?: Yes Additional Comment 1129: EDMD Dr. Magana interpreted the EKG to show paced rhythm at a rate of 109bpm, nonspecific ST changes, prolonged QTc of 539ms, and poor R wave progression. Chest X-Ray : Interpreted By: both Additional Comments [address] [address] DIAGNOSTIC RADIOLOGY Patient: DANILO ASTUDILLO Medical Record: [id number] [facility] : 1950, Age: 74 Sex: Male Location: ER Patient Status: [facility] ER Service Date/Time: 01/19/25/ 1147 Ordering Physician: LUIS FERNANDO MAGANA MD Exam: CHEST,SINGLE VIEW CHEST RADIOGRAPH Indication: CP Technique: Single frontal view of the chest was obtained Comparison: DI CHEST,SINGLE VIEW on DOS: 08/07/23, DI CHEST,SINGLE VIEW on DOS: 07/26/23 FINDINGS: Lines and Tubes: Left chest pacer. Evidence of prior CABG. cervical ACDF. Lungs: No focal consolidation. Pleura: No effusion. No pneumothorax. Cardiomediastinal contours: Unremarkable Bones: No acute osseous abnormality. IMPRESSION: 1. No acute cardiopulmonary disease. Electronically Signed by:CHRIS REESE MD Date & Time: 01/19/25 1222 Dictated by: CHRIS REESE MD Dictation date and time: 01/19/25 1145 Primary Care Provider: NO PRIMARY CARE PROVIDER cc: LUIS FERNANDO MAGANA MD ~ EDMD Dr. Magana reviewed imaging and agrees with above findings. Heart Score: Heart Score Response (Comments) Value History Slightly Suspicious 0 EKG Repolarization Disturb 1 Age >65 2 Risk Factors 1 or 2 risk factors 1 Troponin Normal limit 0 Total 4 Medical Decision Making Additional info obtained from: old records Departure Time of Disposition: 14:28 Disposition: 01 HOME / SELF CARE / HOMELESS Impression: Primary Impression: Acute on chronic heart failure Qualified Codes: I50.9 - Heart failure, unspecified Additional Impressions: Dyspnea on exertion Acute on chronic renal insufficiency Condition: Stable Discharge Instructions: Heart Failure Action Plan Additional Instructions: Follow up with your car examiner, Dr. Jo. Take medications as prescribed. Referrals: NO PRIMARY CARE PROVIDER (PCP) Education Educated: Patient Educated regarding: diagnosis, need for follow up Signature Scribe Signature: Scribed for Luis Fernando Magana MD by Elizabeth Oneil. 01/19/25 12:29 Attestation: The note accurately reflects work and decisions made by me.Luis Fernando Magana MD 01/19/25 12:23 LUIS FERNANDO MAGANA MD Jan 19, 2025 12:23
[2025-01-19 12:36] LABS: MEAN PLATELET VOLUME 9.0 FL (7.4-10.4); RED CELL DISTRIBUTION WIDTH 14.3 % (11.5-14.5)
[2025-01-19 12:46] LABS: CREATININE 1.55 MG/DL (0.60-1.10); TOTAL CARBON DIOXIDE 27.4 MMOL/L (24-32); eCRCL 47 ML/MIN; eGFR 44 ML/MIN
[2025-01-19 12:53] LABS: PRO BRAIN NATRIURETIC PEPTIDE 5376 PG/ML (0-125)
[2025-01-19 13:00] LABS: ETHANOL < 10 MG/DL (<10)
[2025-01-19] MEDS: furosemide 10 MG/1 ML 10ml inj IV ONE (13:00)
[2025-01-19 15:11] VITALS: BP 110/71; PULSE 101; RESP 18; TEMP 98.1; O2SAT 98
--- NOTE | 2025-01-20 04:58 | ELECTROCARDIOGRAPH REPORT ---
[facility] Test Date: 2025-01-19 Test Time: 11:29:59 Pat Name: DANILO ASTUDILLO Department: EMERGENCY ROOM Room: Gender: M Ux Engineer: SHONNA : 1950 Requested By: ROBEL TOM Order Number: [id number] Reading MD: Measurements Intervals [place] Rate: 109 P: 103 AK: 146 QRS: -10 QRSD: 134 T: 195 QT: 400 QTc: 539 Interpretive Statements A-V dual-paced complexes w/ some inhibition No further analysis attempted due to paced rhythm Please click the below link to view image of tracing.
--- NOTE | 2025-01-21 18:59 | CARDIOLOGY REPORT ---
APPROVED REPORT EXAM: Comprehensive 2D, Doppler, and color-flow Echocardiogram. Patient Location: ER 8 Blood Pressure: 143/73 mmHg Heart Rate: 97-105 bpm Rhythm: Paced with underlying atrial fibrillation Indications Abnormal EKG CAD Hx of CABG X 5 (1997) Hx of Stents X 4 Hx of DE Ore Tester: MD Clark Previous echo: 07/26/2023 [facility] EF:15-20% mild LV, mild RV, mod MR, mod [place] 2D Dimensions LA Diam 4.6 cm IVSd 1.1 (0.7-1.1cm) LVDd 6.0 cm PWd 1.1 (0.7-1.1cm) IVSs 1.2 (0.8-1.2cm) LVDs 5.6 (2.5-4.0cm) PWs 1.2 (0.8-1.2cm) LVEF(%) 15.9 (>50%) FS (%) 7.3 % SV 28.7 ml CO 4.7 L/min M-Mode Dimensions RVDd 3.30 (2.1-3.2cm) Left Atrium(MM) 4.58 (2.5-4.0cm) IVSd 1.12 (0.7-1.1cm) LVDd 6.21 (4.0-5.6cm) Aortic Root 3.62 (2.2-3.7cm) PWd 1.16 (0.7-1.1cm) Aortic Cusp Exc 1.83 (1.5-2.0cm) IVSs 1.38 cm MV EPSS 1.5 (<0.5cm) LVDs 5.48 (2.0-3.8cm) FS (%) 12 % PWs 1.16 cm ESV(Teich) 146.0 ml LVEF(%) 20 (>50%) Aortic Valve AoV Peak Wilfrid. 145.3 cm/s AO Peak GR. 8.0 mmHg AO Mean GR. 3 mmHg LVOT VTI 16.43 cm LVOT Peak Wilfrid. 99.8 cm/s VAISHNAVI (VMAX) 22.91 cm2 VAISHNAVI (VTI) 2.71 cm2 Mitral Valve MV Peak Gr. 4 mmHg MV PHT 72 ms MVA (PHT) 3.06 cm2 MV VMax 98.0 cm/s Tricuspid Valve TR P. Velocity 231 cm/s RAP ESTIMATE 10 mmHg TR Peak Gr. 21 mmHg RVSP 31 mmHg LEFT VENTRICLE The LV is dilated in size with normal wall thickness. Wall motion abnormalities are present. Overall systolic function is severely decreased. There is severe LV systolic dysfunction present. Overall estimated ejection fraction is about 20% RIGHT VENTRICLE Right ventricle is moderately dilated with reduced function. Estimated PA systolic pressure is 31 mmHg. Pacemaker wire in right heart. ATRIA Left atrium is moderately dilated. AORTIC VALVE Trileaflet AV appears sclerotic without stenosis with trivial insufficiency. MITRAL VALVE Mild MV annular calcification without stenosis. Moderate regurgitation. TRICUSPID VALVE TV appears structurally normal with mild regurgitation. PULMONIC VALVE Grossly normal PV without stenosis, physiologic insufficiency. GREAT VESSELS The aortic root is normal in size. IVC is not well visualized. PERICARDIUM Normal pericardium. No pericardial effusion seen. Other Information Study Quality: Adequate Conclusion The LV is dilated in size with normal wall thickness. Wall motion abnormalities are present. Overall systolic function is severely decreased. Overall estimated ejection fraction is about 20% Right ventricle is moderately dilated with reduced function. Estimated PA systolic pressure is 31 mmHg. Pacemaker wire in right heart. Trileaflet AV appears sclerotic without stenosis with trivial insufficiency. Mild MV annular calcification without stenosis. Moderate regurgitation. TV appears structurally normal with mild regurgitation. Grossly normal PV without stenosis, physiologic insufficiency. Normal pericardium. No pericardial effusion seen.
== END 2025-01-19 15:10 | disposition home or self-care (01) ==
LOC: ER 11:11
DX: I13.0 Hypertensive heart and chronic kidney disease with heart failure and stage 1 through stage 4 chronic kidney disease, or unspecified chronic kidney disease (principal); I50.9 Heart failure, unspecified; N18.9 Chronic kidney disease, unspecified; R06.09 Other forms of dyspnea; E78.00 Pure hypercholesterolemia, unspecified; I25.10 Atherosclerotic heart disease of native coronary artery without angina pectoris; I25.2 Old myocardial infarction; Z87.891 Personal history of nicotine dependence; Z95.0 Presence of cardiac pacemaker; Z79.82 Long term (current) use of aspirin
CPT/HCPCS: 36415; 71045; 80048; 80076; 80320; 83735; 83880; 84484; 85025; 93005; 93306; 96374; 99285; J1938